=== PATIENT | male | born 2000 | race Hispanic/Latino ===

== ENCOUNTER 2024-01-07 16:50 | Emergency (ER) | payer SELFPAY ==
[~2024-01-07] VITALS: Ht 167.6 cm; Wt 68.0 kg
[2024-01-07 17:01] VITALS: BP 130/87; PULSE 70; RESP 16; TEMP 98.6
[2024-01-07] MEDS ORDERED: ceFAZolin SODIUM 1 GM VIAL IVPB STA (17:52)
--- NOTE | 2024-01-07 18:54 | ERN ---
ED Note History of Present Illness Stated Complaint: "HIT MYSELF WITH DOOR BIT MY LIP HARD" Chief Complaint: Laceration/Avulsion Time Seen by MD: 16:51 Time Seen by Midlevel: 16:55 Dictation: 23-year-old male coming in after running into a door sustaining a lip laceration. Patient states he has no medical problems. Is unknown if he has tetanus is up-to-date. No LOC. No blood thinners. No other complaints. Allergies: Coded Allergies: No Known Allergies (Unverified Allergy, Unknown, 01/07/24) Home Meds Active Scripts Amoxicillin/Potassium Clav (Amox Tr-K Clv 875-125 mg Tab) 875 Mg-125 Mg Tablet, 1 TAB PO BID for 10 Days, #20 TAB 0 Refills Prov:SHAUNNA STEELE NP 01/07/24 Past Medical History Past Medical History: No Pertinent History Additional Past Medical Hx: STATES TAKING PREVENTATIVE HIV MEDS Surgical History: None Review of System Dictation Constitutional: Negative for fever,chills, and weight loss Eyes: Negative for injury, pain,redness, and discharge ENT: Negative for injury,pain or swelling Cardiovascular: Negative for chest pain, palpitations, and edema Respiratory: Negative for shortness of breath, cough, and wheezing, Abdomen/GI: Negative for abdominal pain, nausea, vomiting, diarrhea, and constipation Back: Negative for injury and pain : Negative for injury, bleeding and discharge MS/Extremity: Negative for injury and deformity Skin: Negative for rash, and discoloration ,upper lip laceration Neuro: Negative for headache, weakness, numbness, tingling, and seizure Psych: Negative for suicide ideation, homicidal ideation, and hallucinations Review of Systems: was completed Initial Vital Sign VS Vital Signs Date Time Temp Pulse Resp B/P (MAP) Pulse Ox O2 Delivery O2 Flow Rate FiO2 01/07/24 17:01 98.6 70 16 130/87 98 Room Air 0 Physical Exam Dictation General: awake, alert, NAD Head/Face: Normocephalic, atraumatic Eyes: PERRL, EOMI, vision at baseline ENT: oral cavity clear, TMs clear, no signs of infection Neck: Trachea midline, supple, no nuchal rigidity Cardiovascular: RRR, normal S1/S2, No MRGs, no JVD Respiratory: CTAB, no respiratory distress, No rales or wheezes Abdomen: Soft, non-tender, non-distended, normal bowel sounds, no guarding or rebound. Skin: Warm, dry, normal turgor, no rash 10 cm laceration starting at the left upper lip extending into the inner lip MS/Extremity: Pulses equal, no cyanosis, neurovascular intact, FROM Neuro: COAx4, GCS 15, strength 5/5, CN 2-12 intact, normal cerebellar exam, normal gait, Psych: Normal behavior, mood, and affect normal ED Course ED Course Orders Procedure Category Date Status Time Tetanus,Diphtheria PHA 01/07/24 Complete Tox [Adult] (Diphther 18:00 Cefazolin Sodium 1 Gm PHA 01/07/24 Complete Vial (Ancef 1 Gm V 17:52 Lidocaine Hcl 1% 20ml PHA 01/07/24 Complete Vial (Lidocaine Hc 17:52 Ceftriaxone 1g Vial PHA 01/07/24 Complete (Rocephine 1g Inj) 18:30 Neomy PHA 01/07/24 Complete Sulf/Bacitra/Polymyxin 18:54 *Nursing CPOE 01/07/24 Transmitted Communication: 18:54 Current Medications Medications (Trade) Dose Ordered Sig/Naida Route PRN Reason Start Time Stop Time Status Last Admin Dose Admin Cefazolin Sodium (ANCEF 1 gm vial) 1 gm ONCE STAT IVPB 01/07/24 17:52 01/07/24 18:16 DC Ceftriaxone Sodium (ROCEphine 1G INJ) 1 gm ONCE ONCE IM 01/07/24 18:30 01/07/24 18:31 DC 01/07/24 19:17 Lidocaine HCl (Lidocaine HCl 1% 20ml Vial) 20 ml ONCE STAT INJ 01/07/24 17:52 01/07/24 17:53 DC Neomycin/ Polymyxin/ Bacitracin (Triple Antibiotic Ointment) 1 appl ONCE STAT TP 01/07/24 18:54 01/07/24 18:55 DC 01/07/24 19:17 Tetanus/ Diphtheria Toxoids Adsorbed (DiphthERIA-teTANUS TOXOID [ADULT]/ DECAVAC) 0.5 ml ONCE ONCE IM 01/07/24 18:00 01/07/24 18:01 DC 01/07/24 19:19 Vital Signs Date Time Temp Pulse Resp B/P (MAP) Pulse Ox O2 Delivery O2 Flow Rate FiO2 01/07/24 17:01 98.6 70 16 130/87 98 Room Air 0 Medical Decision Making MDM MDM: 23-year-old male coming in after running into a door sustaining a lip laceration. Patient states he has no medical problems. Is unknown if he has tetanus is up-to-date. No LOC. No blood thinners. No other complaints. Differential diagnosis: Foreign body, laceration, artery involvement there is a 10 cm laceration that starts at the left upper lip extending into the inner oral mucosa. ER MD at bedside, did wound repair. There is a total of nine sutures sutures, four of those need to be removed in 7-10 days, the other five are absorbable sutures. Patient was made aware. Educated on wound care. Educated not to apply any creams, make-up or chapstick. Educated to come eat the antibiotic prescription and to return if any signs of infection. Patient verbalized understanding, answered all questions. Rationale: Tests considered and ordered secondary to shared decision making include: Previous outside records reviewed: Old ER visits. Risk of complication and/or morbidity or mortality of patient management: None Medications-Per medication reconciliation Need for hospitalization: Patient does not meet criteria for hospitalization. Need for emergency major/minor surgery: No There are no social concerns with this patient. Prescription drug management Prescriptions will include symptomatic care Patient's prior external medical records from other ER visits were reviewed by me as indicated. Prior testing and results from previous visits were reviewed. Prior tests were taken into account with medical decision making and resource utilization, independent historian/historians were used to obtain complete medical history. I independently interpreted the test that were performed, results were reviewed by me and considered findings on radiology if ordered. Medical management and examination interpretation discussions were had by me with other qualified healthcare professionals as indicated for the patient's care. Procedure Wound Location: mouth Wound Length (cm): 10 Wound's Depth, Shape: linear Wound Explored: clean Irrigated w/ Saline (ccs): 15 Anesthesia: 1% Lidocaine Volume Anesthetic (ccs): 4 Wound Debrided: minimal Wound Repaired With: sutures Suture Size/Type: 6:0, 4:0 Number of Sutures: 9 DX & DISP Disposition: Discharge Departure Impression: Primary Impression: Laceration of lip Condition: Stable Scripts Amoxicillin/Potassium Clav (Amox Tr-K Clv 875-125 mg Tab) 875 Mg-125 Mg Tablet 1 TAB PO BID for 10 Days, #20 TAB 0 Refills Prov: STEELE,SHAUNNA DIGITAL CAMPAIGN MANAGER 01/07/24 Additional Instructions: Please cleaned wound with soap and water, completely dose of antibiotics. Refrain from applying any creams, make a, or chapstick. Come back in 7-10 days to remove the top of four sutures. Return to the emergency room if you have any signs of infection. Referrals: NONE (PCP) Time of Disposition: 18:56 I have reviewed the case, and I agree with, Diagnosis and Plan I performed this substantive portion of this visit. I have reviewed and personally made and approve the management plan that is documented in the note by myself or the DIANN. I acknowledge full responsibility for the patient's manage ment plan. SHAUNNA STEELE NP Jan 07, 2024 18:54 ZANE OAKES MD Jan 08, 2024 10:14
[2024-01-07] MEDS ORDERED: AMOX1TAB16 PO (18:57)
[2024-01-07] MEDS: LIDOCAINE HCL 1% 20 ML VIAL INJ STA (19:10)
[2024-01-07] MEDS: cefTRIAXone 1G VIAL IM ONE (19:17)
[2024-01-07] MEDS: NEOMY SULF/BACITRA/POLYMYXIN B 1 EACH PACKET TP STA (19:17)
[2024-01-07] MEDS: teTANUS/diphthERIA TOXOID [ADULT] 0.5 ML VIAL IM ONE (19:19)
== END 2024-01-07 19:30 | disposition home or self-care (01) ==
LOC: EDH 16:50
DX: S01.511A Laceration without foreign body of lip, initial encounter (principal); W22.09XA Striking against other stationary object, initial encounter; Y93.89 Activity, other specified; Y92.89 Other specified places as the place of occurrence of the external cause; Y99.8 Other external cause status
CPT/HCPCS: 99284; 90714; 90471; 12015; 96372; J0696